=== PATIENT | female | born 1960 | race Caucasian/White ===

== ENCOUNTER 2017-05-30 22:44 | Emergency (ER) | payer OTHER ==
[~2017-05-30] VITALS: Ht 160 cm; Wt 76.2 kg
[~2017-05-30 22:44] MED LIST: CARI350T PO; OXYC1TAB PO
[2017-05-30 22:49] VITALS: BP 134/65
--- NOTE | 2017-05-30 22:53 | NUR ---
PT W/C ASSISTED TO BED 4.
--- NOTE | 2017-05-30 23:00 | NUR ---
56Y/F PT. PRESENTS TO ED WITH C/O PAIN LOWER BACK RADIATES TO RIGHT LEG X 1 WEEK. HX. CHRONIC BACK PAIN, ON PAIN MANAGEMENT. RUN OUT OF PAIN MEDICAINE. APPOINTMENT WITH PMD NEXT WEEK. AAO X4, AMBULATORY WITH W/C ASSIST. C/O PAIN 03/26. VSS, ER MADE AWARE OF PT. STAUDaily.
--- NOTE | 2017-05-30 23:00 | NUR ---
Patient being evaluated by DR. ALMAZAN at bedside.
[2017-05-30] MEDS ORDERED: predniSONE 20 MG TAB PO ONE (23:20)
[2017-05-30] MEDS ORDERED: KETOROLAC 60 MG/2 ML VIAL IM ONE (23:20)
[2017-05-30] MEDS ORDERED: CYCLOBENZAPRINE 10 MG TAB PO ONE (23:20)
[2017-05-31 00:21] VITALS: BP 140/81
--- NOTE | 2017-05-31 00:21 | NUR ---
Patient discharged with v/s stable. Written and verbal after care instructions given and explained. Patient alert, oriented and verbalized understanding of instructions. Ambulatory with steady gait. All questions addressed prior to discharge. ID band removed. Patient advised to follow up with PMD. Rx of FLEXERIL 5 MG TAB & PREDNISONE 20 MG TAB given. Patient educated on indication of medication including possible reaction and side effects. Opportunity to ask questions provided and answered.
== END 2017-05-31 00:21 | disposition home or self-care (01) ==
LOC: MED 22:44
DX: M54.40 Lumbago with sciatica, unspecified side (principal); I10 Essential (primary) hypertension; Z79.899 Other long term (current) drug therapy
CPT/HCPCS: 96372; 99283; J1885; J7512

== ENCOUNTER 2017-08-20 19:14 | Emergency (ER) | payer OTHER ==
[~2017-08-20] VITALS: Ht 162.6 cm; Wt 78.9 kg
[2017-08-20 19:22] VITALS: BP 140/83
--- NOTE | 2017-08-20 20:13 | NUR ---
AMBULATED TO ER BED 11
[2017-08-20] MEDS ORDERED: fentaNYL 0.05 MG/ML VIAL IM ONE (20:35)
[2017-08-20] MEDS ORDERED: KETOROLAC 30 MG/ML VIAL IM ONE (20:35)
--- NOTE | 2017-08-20 21:00 | NUR ---
PATIENT PRESENTS TO ED WITH PAIN TO LOWER BACK . PT STATES SHE WAS CLEANING UP FOR SARAH AND HER SCIATICA PAIN GOT WORSE . DENIES N/V/D; SKIN IS PINK/WARM/DRY; AAOX4 WITH EVEN AND STEADY GAIT; LUNGS CLEAR BL; HR EVEN AND REGULAR; PT DENIES ANY FEVER, CP, SOB, OR COUGH AT THIS TIME; PATIENT STATES PAIN OF 7/10 AT THIS TIME; VSS; PATIENT POSITIONED FOR COMFORT; HOB ELEVATED; BEDRAILS UP X2; BED DOWN. ER MD MADE AWARE OF PT STATUS.
[2017-08-20 21:25] VITALS: BP 129/71
--- NOTE | 2017-08-20 21:25 | NUR ---
Patient discharged with v/s stable. Written and verbal after care instructions given and explained. Patient alert, oriented and verbalized understanding of instructions. Ambulatory with steady gait. All questions addressed prior to discharge. ID band removed. Patient advised to follow up with PMD. Rx of NAPROSYN, PERCOCET given. Patient educated on indication of medication including possible reaction and side effects. Opportunity to ask questions provided and answered. PT STATES SHE HAS A RIDE HOME.
== END 2017-08-20 21:25 | disposition home or self-care (01) ==
LOC: MED 19:14
DX: M54.42 Lumbago with sciatica, left side (principal); I10 Essential (primary) hypertension; Z79.899 Other long term (current) drug therapy
CPT/HCPCS: 81025; 96372; 99284; J1885; J3010

== ENCOUNTER 2019-02-05 13:20 | Emergency (ER) | payer OTHER ==
[~2019-02-05] VITALS: Ht 162.6 cm; Wt 72.6 kg
[2019-02-05 13:27] VITALS: BP 140/89
--- NOTE | 2019-02-05 13:27 | NUR ---
PATIENT AMBULATED TO BED 1
--- NOTE | 2019-02-05 13:35 | NUR ---
PT PRESENTED TO THE ED WITH THE CHIEF C/O COUGH AND RUNNY NOSE FOR 2 DAYS. COUGH WITH PHLEGM, NO BLOOD. TOOK MOTRIN THIS MORNING AT 0800 W/O RELIEF. NAUSEATED AT THIS TIME. NO VOMITING OR DIARRHEA. DENIES RECENT FEVER. LUNGS CLEAR ON AUSCULTATION. ABDOMEN SOFT ROUND AND NON-TENDER. ACTIVE BOWEL SOUND. VSS.
[2019-02-05] MEDS ORDERED: ALBUTEROL SULFATE/IPRATROPIU 3 ML SOL IH ONE (14:15)
[2019-02-05] MEDS ORDERED: DEXAMETHASONE 10 MG/ML VIAL IM ONE (14:15)
[2019-02-05] MEDS ORDERED: hydrOXYzine HCL 25 MG TAB PO ONE (14:15)
[2019-02-05] MEDS ORDERED: cefTRIAXone 1,000 MG in LIDOCAINE 1% ***ER ONLY *** 2.1 ML IM ONE (14:15)
[2019-02-05] MEDS ORDERED: cefTRIAXone 1,000 MG VIAL ONE (14:30)
[2019-02-05] MEDS ORDERED: LIDOCAINE MPF 1% 5mL VIAL ONE (14:31)
--- NOTE | 2019-02-05 14:50 | NUR ---
Note [email or web address] in EDM - 02/05/19 at 1522 by MEDMAYNORV Patient discharged with v/s stable. Written and verbal after care instructions given and explained. Patient alert, oriented and verbalized understanding of instructions. Ambulatory with steady gait. All questions addressed prior to discharge. ID band removed. Patient advised to follow up with PMD. Rx of FIORICET [id number], PROMETHAZINE DM 6/25MG-15MG/5ML AND LEVAQUIN 500MG given. Patient educated on indication of medication including possible reaction and side effects. Opportunity to ask questions provided and answered.
[2019-02-05 15:20] VITALS: BP 148/82
--- NOTE | 2019-02-05 15:20 | NUR ---
Patient discharged with v/s stable. Written and verbal after care instructions given and explained. Patient alert, oriented and verbalized understanding of instructions. Ambulatory with steady gait. All questions addressed prior to discharge. ID band removed. Patient advised to follow up with PMD. Rx of FIORICET [id number], PROMETHAZINE DM 6/25MG-15MG/5ML AND LEVAQUIN 500MG given. Patient educated on indication of medication including possible reaction and side effects. Opportunity to ask questions provided and answered.
== END 2019-02-05 15:20 | disposition home or self-care (01) ==
LOC: MED 13:20
DX: J20.9 Acute bronchitis, unspecified (principal); I10 Essential (primary) hypertension; Z79.899 Other long term (current) drug therapy
CPT/HCPCS: 71046; 94640; 96372; 99283; J0696; J1100; J2001; J7620; Q0092

== ENCOUNTER 2019-02-06 07:59 | Emergency (ER) | payer OTHER ==
[~2019-02-06] VITALS: Ht 160 cm; Wt 72.6 kg
[2019-02-06 08:05] VITALS: BP 149/83
--- NOTE | 2019-02-06 08:05 | NUR ---
PT PRESENTS TO ED WITHC/O HEADACHE X 2 DAYS. PT WAS SEEN BY ER MD YESTERDAY WITH DX.BRONCHITIS, TREATED WITH ATB AND ALSO GOT BETALB/APAP/CAFF FOR HEADCHE. PAIN NOTE RELIEVED. DENIES PMH. AAO X4, GCS 15, AMBULATORY WITH STEADY GAIT. PUPILS PERRL 3/3 MM. ABLE TO SPEAK WITH FULL COMPLETE SENTENCES. RESPIATIONS EVEN AND UNLABORED, BL LUNG CLEAR. C/O NON PRODUCTIVE COUGH. SKIN WARM/PINK/DRY, +PMSC. VS, TACHYCARDIA IL 117, BP WNL. STATED HEADACHE 10/10. DR. GUERRERO MADE AWARE OF PT STATUS. WILL CONTINUE TO MONITOR
--- NOTE | 2019-02-06 08:05 | NUR ---
PT AMBULATED TO ED BED 07
--- NOTE | 2019-02-06 08:52 | NUR ---
pt amb to bpr w/o asst
[2019-02-06] MEDS ORDERED: diphenhydrAMINE 50 MG/ML VIAL IM ONE (09:20)
[2019-02-06] MEDS ORDERED: PROCHLORPERAZINE 10 MG/2 ML VIAL IM ONE (09:20)
--- NOTE | 2019-02-06 10:31 | NUR ---
Patient discharged with v/s stable. Written and verbal after care instructions given and explained. Patient alert, oriented and verbalized understanding of instructions. Ambulatory with steady gait. All questions addressed prior to discharge. ID band removed. Patient advised to follow up with PMD. Rx of COMPAZINE 10 MG, BENADRYL 25 MG given. Patient educated on indication of medication including possible reaction and side effects. Opportunity to ask questions provided and answered.
[2019-02-06 10:32] VITALS: BP 125/80
== END 2019-02-06 10:31 | disposition home or self-care (01) ==
LOC: MED 07:59
DX: R51 Headache (principal); R05 Cough; R11.0 Nausea; I10 Essential (primary) hypertension; F17.200 Nicotine dependence, unspecified, uncomplicated; Z79.899 Other long term (current) drug therapy
CPT/HCPCS: 81025; 96372; 99283; J0780; J1200

== ENCOUNTER 2019-02-25 11:33 | Emergency (ER) | payer OTHER ==
[~2019-02-25] VITALS: Ht 162.6 cm; Wt 76.7 kg
[2019-02-25 11:41] VITALS: BP 153/79
--- NOTE | 2019-02-25 11:48 | NUR ---
PATIENT AMBULATED TO BED 12
[2019-02-25] MEDS ORDERED: KETOROLAC 60 MG/2 ML VIAL IM ONE (12:35)
--- NOTE | 2019-02-25 13:20 | NUR ---
MEDICATED PER ERMDS ORDER , TOLERATED WELL.
[2019-02-25 14:05] VITALS: BP 151/85
--- NOTE | 2019-02-25 14:07 | NUR ---
Patient discharged with v/s stable. Written and verbal after care instructions given and explained. Patient alert, oriented and verbalized understanding of instructions. Ambulatory with steady gait. All questions addressed prior to discharge. ID band removed. Patient advised to follow up with PMD. Rx of NAPROSYN AND FIORICET given. Patient educated on indication of medication including possible reaction and side effects. Opportunity to ask questions provided and answered.
--- NOTE | 2019-02-25 14:09 | NUR ---
Chart checked and completed. The patient's care was reviewed and supervised by Blanche Waller RN.
== END 2019-02-25 14:07 | disposition home or self-care (01) ==
LOC: MED 11:33
DX: M54.5 Low back pain (principal); G89.29 Other chronic pain; G43.909 Migraine, unspecified, not intractable, without status migrainosus; F17.210 Nicotine dependence, cigarettes, uncomplicated; I10 Essential (primary) hypertension; Z87.39 Personal history of other diseases of the musculoskeletal system and connective tissue; Z79.899 Other long term (current) drug therapy
CPT/HCPCS: 96372; 99283; J1885

== ENCOUNTER 2019-04-04 14:09 | Emergency (ER) | payer OTHER ==
[~2019-04-04] VITALS: Ht 162.6 cm; Wt 82.1 kg
[2019-04-04 14:31] VITALS: BP 132/81
--- NOTE | 2019-04-04 15:31 | NUR ---
Patient ambulated to bed 10
--- NOTE | 2019-04-04 15:48 | NUR ---
Note undone in EDM - 04/04/19 at 1752 by [email or web address] 58/F BIB SELF C/O R HIP PAIN RADIATING TO RIGHT LEG X 4 DAYS . PT REPORTS GETTING APPROVAL TO BE SEEN BY A PAIN MANAGMENT DR BUT SHE DOESN'T HAVE THE APPT YET AND IS IN TOO MUCH PAIN TO WAIT UNTIL THEN. DENIES INJURY. PT STATES SHE HAS A DISC DISEASE AND DEGENERATIVE BONE DISEASE THAT CAUSES HER ALOT OF PAIN ALL THE TIME. 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 AAOX4 AMB WITH CANE; PATIENT STATES PAIN OF 10/10 AT THIS TIME. PATIENT POSITIONED FOR COMFORT; HOB ELEVATED; BEDRAILS UP X1; BED DOWN. ER MD MADE AWARE OF PT STATUS.
--- NOTE | 2019-04-04 17:45 | NUR ---
PATIENT MOVED TO BED 5 VIA W/C
--- NOTE | 2019-04-04 17:51 | NUR ---
PT BIB VIA W/C TO ED BED 05 FOR EVALUATION OF RT HIP PIAN. PT STATED HAVING CHRONIC HIP PAIN. PMD REFERRED TO PAIN MANAGEMENT NEXT 2 WKS. PT AAO X4, GCS 15, RESPIATIONS EVEN AND UNLABORED. RT HIP PAIN RADIATES TO RT LEG. VSS, NO ACUTE DSITRESS AT THIS TIME. ED PROVIDER MADE AWARE OF PT STATUS. WILL CONTINUE TO MONITOR
--- NOTE | 2019-04-04 17:53 | NUR ---
Dr. Hughes evaluating patient at bedside.
[2019-04-04] MEDS ORDERED: MORPHINE SULFATE 4 MG/ML SYR IM ONE (18:00)
[2019-04-04 18:30] VITALS: BP 135/82
--- NOTE | 2019-04-04 18:45 | NUR ---
Patient discharged with v/s stable. Written and verbal after care instructions given and explained. Patient alert, oriented and verbalized understanding of instructions. Ambulatory with steady gait. All questions addressed prior to discharge. ID band removed. Patient advised to follow up with PMD. Opportunity to ask questions provided and answered.
== END 2019-04-04 18:45 | disposition home or self-care (01) ==
LOC: MED 14:09
DX: M54.9 Dorsalgia, unspecified (principal); G89.29 Other chronic pain; M25.559 Pain in unspecified hip; I10 Essential (primary) hypertension; Z79.899 Other long term (current) drug therapy
CPT/HCPCS: 96372; 99283; J2270

== ENCOUNTER 2019-10-25 14:08 | Emergency (ER) | payer SELFPAY ==
[~2019-10-25] VITALS: Ht 162.6 cm; Wt 74.8 kg
[2019-10-25 14:12] VITALS: BP 119/82
--- NOTE | 2019-10-25 14:17 | NUR ---
TO LOBBY, VSS. AWAITING BED IN ED.
--- NOTE | 2019-10-25 14:31 | NUR ---
PT AMBULATED TO ER BED 05
[2019-10-25] MEDS ORDERED: KETOROLAC 60 MG/2 ML VIAL IM ONE (14:55)
--- NOTE | 2019-10-25 15:01 | NUR ---
59 YR OLD AAO X4 PT BIB C/O CHRONIC LOWER BACK PAIN RADIATING TO L LEG X 5 DAYS. DENIES DYSURIA. MED HX: HTN, R HIP REPLACEMENT 2014
[2019-10-25 16:31] VITALS: BP 111/67
--- NOTE | 2019-10-25 16:33 | NUR ---
Patient discharged with v/s stable. Written and verbal after care instructions given and explained. Patient alert, oriented and verbalized understanding of instructions. Ambulatory with steady gait. All questions addressed prior to discharge. ID band removed. Patient advised to follow up with PMD. Rx of [place],medrol,Ibu given. Patient educated on indication of medication including possible reaction and side effects. Opportunity to ask questions provided and answered.
== END 2019-10-25 16:33 | disposition home or self-care (01) ==
LOC: MED 14:08
DX: G89.29 Other chronic pain (principal); M54.9 Dorsalgia, unspecified; R31.9 Hematuria, unspecified; I10 Essential (primary) hypertension; Z79.899 Other long term (current) drug therapy
CPT/HCPCS: 81002; 96372; 99283; J1885

== ENCOUNTER 2020-02-11 10:48 | Emergency (ER) | payer MEDICAID, OTHER ==
[~2020-02-11] VITALS: Ht 156.2 cm; Wt 67.8 kg
[2020-02-11 10:49] VITALS: BP 144/117
[2020-02-11] MEDS ORDERED: KETOROLAC 30 MG/ML VIAL IM ONE (11:35)
[2020-02-11 12:58] VITALS: BP 138/94
== END 2020-02-11 12:59 | disposition home or self-care (01) ==
LOC: MED 10:48
DX: S16.1XXA Strain of muscle, fascia and tendon at neck level, initial encounter (principal); I10 Essential (primary) hypertension; M50.30 Other cervical disc degeneration, unspecified cervical region; W17.89XA Other fall from one level to another, initial encounter; Y93.89 Activity, other specified; Y92.89 Other specified places as the place of occurrence of the external cause; Y99.8 Other external cause status; Z79.899 Other long term (current) drug therapy; M54.30 Sciatica, unspecified side
CPT/HCPCS: 72040; 72125; 96372; 99284; J1885

== ENCOUNTER 2021-07-02 08:05 | Emergency (ER) | payer OTHER ==
[~2021-07-02] VITALS: Ht 160 cm; Wt 72.6 kg
[2021-07-02 08:16] VITALS: BP 128/84
[2021-07-02] MEDS ORDERED: KETOROLAC 60 MG/2 ML VIAL IM ONE (08:25)
--- NOTE | 2021-07-02 08:35 | NUR ---
IM MEDS GIVEN-NADR AT THIS TIME
--- NOTE | 2021-07-02 08:37 | NUR ---
60 Y/O FEMALE C/O RIGHT BUTTOCK & LEFT FOOT PAIN 03/26 DESCRIBES ACHING X1DAY. NOTED REDNESS & SWELLING S/P FALL X LAST NIGHT. DENIES HEAD INJURY, DENIES LOC. DENIES FEVER/CHILLS. DENIES N/V. PMH: HTN, CHRONIC PAIN NKA
--- NOTE | 2021-07-02 09:01 | NUR ---
PT TAKEN TO XR VIA DAE.
--- NOTE | 2021-07-02 09:16 | NUR ---
PT TAKEN TO ER BED 8 VIA DAE.
[2021-07-02] MEDS ORDERED: ACET-8386 PO (09:36)
[2021-07-02] MEDS ORDERED: IBUP-2213 PO (09:36)
--- NOTE | 2021-07-02 09:40 | NUR ---
per ermd pt right foot was place in a ortho shoe nad pmsc was assesed before and after all wnl.
[2021-07-02 09:52] VITALS: BP 118/76
--- NOTE | 2021-07-02 09:53 | NUR ---
Patient discharged with v/s stable. Written and verbal after care instructions given and explained. Patient alert, oriented and verbalized understanding of instructions. Ambulatory with steady gait. All questions addressed prior to discharge. ID band removed. Patient advised to follow up with PMD. Rx of NORCO AND IBUPROFEN given. Patient educated on indication of medication including possible reaction and side effects. Opportunity to ask questions provided and answered.
== END 2021-07-02 09:52 | disposition home or self-care (01) ==
LOC: MED 08:05
DX: S92.515A Nondisplaced fracture of proximal phalanx of left lesser toe(s), initial encounter for closed fracture (principal); M53.3 Sacrococcygeal disorders, not elsewhere classified; I10 Essential (primary) hypertension; F17.200 Nicotine dependence, unspecified, uncomplicated; Z79.899 Other long term (current) drug therapy; Z98.890 Other specified postprocedural states; W19.XXXA Unspecified fall, initial encounter; Y93.89 Activity, other specified; Y92.89 Other specified places as the place of occurrence of the external cause; Y99.8 Other external cause status
CPT/HCPCS: 72220; 73630; 96372; 99284; J1885

== ENCOUNTER 2021-07-09 10:03 | Emergency (ER) | payer OTHER ==
[~2021-07-09] VITALS: Ht 160 cm; Wt 60.3 kg
[~2021-07-09 10:03] MED LIST changes: +ACET-8386 PO; +IBUP-2213 PO
[2021-07-09 10:10] VITALS: BP 154/83
--- NOTE | 2021-07-09 10:14 | NUR ---
PT SENT TO LOBBY
[2021-07-09] MEDS ORDERED: HYDROcodone/APAP 5/325 MG 1 TAB TAB PO ONE (12:05)
[2021-07-09] MEDS ORDERED: IBUPROFEN 400 MG TAB PO ONE (12:05)
[2021-07-09] MEDS ORDERED: IBUP-1842 PO (12:40)
[2021-07-09] MEDS ORDERED: ACET-8386 PO (12:40)
--- NOTE | 2021-07-09 12:50 | NUR ---
60/F BIB SELF WITH C/O LEFT TOE PAIN. PATIENT STATES SHE WAS SEEN HERE S/P SUFFERING A FALL AND WAS TOLD SHE "BROKE MULTIPLE TOES." STATES SHE FEELS PAIN HAS BEEN WORSENING. DENIES ANY NEW INJURY OR TRAUMA. MEDHX: HTN ALLERGIES: DENIES
--- NOTE | 2021-07-09 13:39 | NUR ---
Patient discharged with v/s stable. Written and verbal after care instructions given and explained ABOUT TOE FRACTURE. Patient alert, oriented and verbalized understanding of instructions. Ambulatory with steady gait. All questions addressed prior to discharge. ID band removed. Patient advised to follow up with PMD. Rx of MOTRIN AND NORCO 5-325 given. Patient educated on indication of medication including possible reaction and side effects. EDUCATED TO NOT DRINK OR DRIVE WHILE USING NARCOTICS Opportunity to ask questions provided and answered.
== END 2021-07-09 13:39 | disposition home or self-care (01) ==
LOC: MED 10:03
DX: S92.512A Displaced fracture of proximal phalanx of left lesser toe(s), initial encounter for closed fracture (principal); I10 Essential (primary) hypertension; Z79.891 Long term (current) use of opiate analgesic; Z79.1 Long term (current) use of non-steroidal anti-inflammatories (NSAID); Z79.899 Other long term (current) drug therapy; W01.0XXA Fall on same level from slipping, tripping and stumbling without subsequent striking against object, initial encounter; Y92.89 Other specified places as the place of occurrence of the external cause; Y93.89 Activity, other specified; Y99.8 Other external cause status
CPT/HCPCS: 29515; 99283

== ENCOUNTER 2021-07-24 07:30 | Emergency (ER) | payer OTHER ==
[~2021-07-24] VITALS: Ht 160 cm; Wt 69.4 kg
[~2021-07-24 07:30] MED LIST changes: +IBUP-1842 PO
[2021-07-24 07:33] VITALS: BP 158/73
[2021-07-24] MEDS ORDERED: ACET-9527 PO (08:00)
[2021-07-24 08:15] VITALS: BP 158/73
== END 2021-07-24 08:15 | disposition home or self-care (01) ==
LOC: MED 07:30
DX: S92.512A Displaced fracture of proximal phalanx of left lesser toe(s), initial encounter for closed fracture (principal); S92.515A Nondisplaced fracture of proximal phalanx of left lesser toe(s), initial encounter for closed fracture; I10 Essential (primary) hypertension; Z79.899 Other long term (current) drug therapy; W19.XXXA Unspecified fall, initial encounter; Y93.89 Activity, other specified; Y92.89 Other specified places as the place of occurrence of the external cause; Y99.8 Other external cause status
CPT/HCPCS: 99283

== ENCOUNTER 2021-07-31 06:20 | Emergency (ER) | payer OTHER ==
[~2021-07-31] VITALS: Ht 160 cm; Wt 68.0 kg
[~2021-07-31 06:20] MED LIST changes: +ACET-9527 PO
[2021-07-31 06:21] VITALS: BP 124/68
--- NOTE | 2021-07-31 06:27 | NUR ---
PT TAKEN TO BED 12
--- NOTE | 2021-07-31 06:30 | NUR ---
LEFT FOOT PAIN. HAS APPOINTMENT WITH VALVE MACHINE OPERATOR NEXT WEEK.PT STATES I'VE BEEN COMING HERE FOR TREATMENTS UNTIL THEN. FOOT PAIN AFTER SLIP AND FALL ON 07/09/21. PT STATES PAIN IS 5/10. MEDICAL HX:HTN MEDICATIONS:LISINPRIL NKA
--- NOTE | 2021-07-31 06:32 | NUR ---
Dr. Jolly examining patient.
[2021-07-31] MEDS ORDERED: HYDROcodone/APAP 5/325 MG 1 TAB TAB PO ONE (06:35)
[2021-07-31] MEDS ORDERED: ACET-8386 PO (06:41)
[2021-07-31 07:05] VITALS: BP 124/68
--- NOTE | 2021-07-31 07:05 | NUR ---
Patient discharged with v/s stable. Written and verbal after care instructions given and explained. Patient alert, oriented and verbalized understanding of instructions. Ambulatory with steady gait. All questions addressed prior to discharge. ID band removed. Patient advised to follow up with PMD. Rx of HYDROCODONE/ACETAMINOPHEN given. Patient educated on indication of medication including possible reaction and side effects. Opportunity to ask questions provided and answered.
--- NOTE | 2021-07-31 18:56 | NUR ---
Chart checked and completed. The patient's care was reviewed and supervised by DAISY CUNNINGHAM, RN, RN.
== END 2021-07-31 07:05 | disposition home or self-care (01) ==
LOC: MED 06:20
DX: M79.672 Pain in left foot (principal); I10 Essential (primary) hypertension; Z79.899 Other long term (current) drug therapy
CPT/HCPCS: 29515; 99283

== ENCOUNTER 2022-06-11 16:01 | Emergency (ER) | payer OTHER ==
[~2022-06-11] VITALS: Ht 160 cm; Wt 60.3 kg
[~2022-06-11 16:01] MED LIST changes: -ACET-9527 PO; -OXYC1TAB PO
[2022-06-11 16:26] VITALS: BP 114/78
[2022-06-11 18:11] LABS: BASOPHILS # (AUTO) 0.1 K/uL (0.00-0.22); BASOPHILS % (AUTO) 0.7 % (0.0-2.0); EOSINOPHILS % (AUTO) 0.2 % (0.0-4.0); HEMATOCRIT 39.2 % (36-48); HEMOGLOBIN 12.7 g/dL (12.0-16.0); LYMPHOCYTES # (AUTO) 0.3 K/uL (2.5-16.5); LYMPHOCYTES % (AUTO) 4.4 % (20.5-51.1); MEAN CORPUSCULAR HEMOGLOBIN 29 pg (27-31); MEAN CORPUSCULAR HGB CONC 32 g/dL (33-37); MEAN CORPUSCULAR VOLUME 90.3 fL (80-94); MONOCYTES # (AUTO) 0.5 K/uL (0.8-1.0); MONOCYTES % (AUTO) 6.3 % (1.7-9.3); NEUTROPHILS # (AUTO) 6.7 K/uL (1.8-7.7); NEUTROPHILS % (AUTO) 88.4 % (42.2-75.2); PLATELET COUNT (AUTO) 212 K/uL (140-450); RED BLOOD CELL COUNT(AUTO) 4.35 MIL/uL (4.20-5.40); RED CELL DISTRIBUTION WIDTH 13.5 % (11.6-13.7); WHITE BLOOD COUNT (AUTO) 7.6 K/uL (4.8-10.8)
[2022-06-11 18:36] LABS: ANION GAP 14.5 (8-16); CARBON DIOXIDE 25.3 mmol/L (21-32); CHLORIDE 100 mmol/L (98-107); CREATININE 1.1 mg/dL (0.6-1.3); GFR ARICAN-AMERICAN 65 mL/min (>90); GLUCOSE 102 mg/dL (74-106); LIPASE 40 U/L (73-393); POTASSIUM 3.8 mmol/L (3.5-5.1); SODIUM SERUM 136 mmol/L (136-145); TOTAL BILIRUBIN 0.3 mg/dL (0.0-1.0); UREA NITROGEN, BLOOD 24 mg/dL (7-18)
[2022-06-11] MEDS ORDERED: ONDANSETRON 4 MG ODT PO ONE (18:55)
[2022-06-11] MEDS ORDERED: ONDA-188 PO (18:58)
--- NOTE | 2022-06-11 19:32 | NUR ---
CALLED PT IN LOBBY AND OUTSIDE. NO ANSWER. CALLED PT TO NUMBER ON FILE, NO ANSWER.
[2022-06-11 19:33] VITALS: BP 114/78
--- NOTE | 2022-06-11 19:33 | NUR ---
Linsey shelton in ED - 06/11/22 at 1937 by MED PATIENT ELOPED FROM FACILITY. DISCHARGE INSTRUCTIONS NOT GIVEN TO PATIENT. DR. DOMINGO NOTIFIED.
--- NOTE | 2022-06-11 19:33 | NUR ---
pt left without paperwork
== END 2022-06-11 19:33 | disposition home or self-care (01) ==
LOC: MED 16:01
DX: R11.2 Nausea with vomiting, unspecified (principal); R51.9 Headache, unspecified; R68.83 Chills (without fever); Z79.899 Other long term (current) drug therapy; Z79.891 Long term (current) use of opiate analgesic; Z79.1 Long term (current) use of non-steroidal anti-inflammatories (NSAID)
CPT/HCPCS: 36415; 80053; 81002; 83690; 85025; 99283; Q0162

== ENCOUNTER 2022-11-20 16:08 | Emergency (ER) | payer OTHER ==
[~2022-11-20] VITALS: Ht 160 cm; Wt 63.5 kg
[~2022-11-20 16:08] MED LIST changes: -ACET-8386 PO; +ACET-8905 PO; +ONDA-188 PO
[2022-11-20 16:33] VITALS: BP 130/73
--- NOTE | 2022-11-20 16:45 | NUR ---
62/F WALKED IN C/O LEFT SIDED BODY PAIN S/P FALL LAST NIGHT. PT REPORTS PAIN FROM LEFT SHOULDER ALL THE WAY DOWN TO LEFT BUTTOCK. DENIES LOC OR TRAUMA TO HEAD. REPORTS TAKING MOTRIN LAST NIGHT WITH MILD RELIEF. PMH: HTN
[2022-11-20] MEDS ORDERED: KETOROLAC 30 MG/ML VIAL IM ONE (17:10)
[2022-11-20] MEDS ORDERED: NAPR-1704 PO (19:43)
[2022-11-20 20:01] VITALS: BP 130/73
--- NOTE | 2022-11-20 20:01 | NUR ---
PT LEFT WITHOUT PAPER WORK
== END 2022-11-20 20:01 | disposition home or self-care (01) ==
LOC: MED 16:08
DX: S40.012A Contusion of left shoulder, initial encounter (principal); S20.212A Contusion of left front wall of thorax, initial encounter; S30.0XXA Contusion of lower back and pelvis, initial encounter; I10 Essential (primary) hypertension; M06.9 Rheumatoid arthritis, unspecified; Z79.899 Other long term (current) drug therapy; Z79.1 Long term (current) use of non-steroidal anti-inflammatories (NSAID); Z79.891 Long term (current) use of opiate analgesic; W01.0XXA Fall on same level from slipping, tripping and stumbling without subsequent striking against object, initial encounter; Y92.89 Other specified places as the place of occurrence of the external cause; Y93.89 Activity, other specified; Y99.8 Other external cause status
CPT/HCPCS: 71101; 72220; 73030; 96372; 99284; J1885

== ENCOUNTER 2023-11-02 09:44 | Emergency (ER) | payer OTHER ==
[~2023-11-02] VITALS: Ht 160 cm; Wt 61.7 kg
[~2023-11-02 09:44] MED LIST changes: +NAPR-1704 PO
[2023-11-02 10:06] VITALS: BP 142/53; PULSE 83; RESP 20; TEMP 98; O2SAT 99
[2023-11-02 10:30] VITALS: O2SAT 99
[2023-11-02 10:33] VITALS: TEMP 98
[2023-11-02] MEDS: LIDOCAINE 5% 1 EA PATCH TP ONE (11:19)
[2023-11-02] MEDS: KETOROLAC 30 MG/ML VIAL IM ONE (11:20)
[2023-11-02 11:50] LABS: BASOPHILS # (AUTO) 0.1 K/uL (0.00-0.22); BASOPHILS % (AUTO) 0.9 % (0.0-2.0); EOSINOPHILS # (AUTO) 0.1 K/uL (0-0.4); EOSINOPHILS % (AUTO) 1.9 % (0.0-4.0); HEMATOCRIT 34.3 % (36-48); HEMOGLOBIN 11.3 g/dL (12.0-16.0); LYMPHOCYTES # (AUTO) 1.2 K/uL (2.5-16.5); LYMPHOCYTES % (AUTO) 18.9 % (20.5-51.1); MEAN CORPUSCULAR HEMOGLOBIN 28 pg (27-31); MEAN CORPUSCULAR HGB CONC 33 g/dL (33-37); MEAN CORPUSCULAR VOLUME 85.5 fL (80-94); MONOCYTES # (AUTO) 0.4 K/uL (0.8-1.0); MONOCYTES % (AUTO) 5.8 % (1.7-9.3); NEUTROPHILS # (AUTO) 4.6 K/uL (1.8-7.7); NEUTROPHILS % (AUTO) 72.5 % (42.2-75.2); PLATELET COUNT (AUTO) 513 K/uL (140-450); RED BLOOD CELL COUNT(AUTO) 4.01 MIL/uL (4.20-5.40); RED CELL DISTRIBUTION WIDTH 14.6 % (11.6-13.7); WHITE BLOOD COUNT (AUTO) 6.4 K/uL (4.8-10.8)
[2023-11-02 12:19] LABS: ANION GAP 10.9 (8-16); CALCIUM 8.7 mg/dL (8.5-10.1); CARBON DIOXIDE 30.3 mmol/L (21-32); CREATININE 0.7 mg/dL (0.6-1.3); POTASSIUM 4.2 mmol/L (3.5-5.1)
[2023-11-02 12:22] LABS: ALANINE AMINOTRANSFERASE 19 U/L (12-78); ALBUMIN 3.2 g/dL (3.4-5.0); ALKALINE PHOSPHATASE 148 U/L (50-136); ASPARTATE AMINOTRANSFERASE 19 U/L (15-37); BILIRUBIN,DIRECT 0.1 mg/dL (0.0-0.3); TOTAL BILIRUBIN 0.2 mg/dL (0.0-1.0); TOTAL PROTEIN, SERUM 7.9 g/dL (6.4-8.2)
[2023-11-02 12:48] VITALS: O2SAT 99
[2023-11-02 12:58] VITALS: BP 145/68; PULSE 81; RESP 17; O2SAT 99
[2023-11-02] MEDS ORDERED: METH-1681 PO (13:21)
[2023-11-02] MEDS ORDERED: IBUP-2213 PO (13:21)
[2023-11-02] MEDS ORDERED: LID5T TP (13:21)
== END 2023-11-02 13:27 | disposition home or self-care (01) ==
LOC: MED 09:44
DX: R07.89 Other chest pain (principal); I10 Essential (primary) hypertension; F17.200 Nicotine dependence, unspecified, uncomplicated; Z79.899 Other long term (current) drug therapy; Z71.6 Tobacco abuse counseling
CPT/HCPCS: 36415; 71101; 80048; 80076; 84484; 85025; 93005; 96372; 99285; J1885

== ENCOUNTER 2023-11-10 12:40 | Emergency (ER) | payer OTHER ==
[~2023-11-10] VITALS: Ht 157.5 cm; Wt 60.8 kg
[~2023-11-10 12:40] MED LIST changes: +LID5T TP; +METH-1681 PO
[2023-11-10 13:16] VITALS: BP 126/61; PULSE 97; RESP 20; TEMP 97.8; O2SAT 98
[2023-11-10] MEDS ORDERED: DICL100G32 TP (16:16)
[2023-11-10] MEDS: KETOROLAC 30 MG/ML VIAL IM ONE (16:31)
[2023-11-12] MEDS ORDERED: DICL100G32 TP (12:27)
[2023-11-12] MEDS ORDERED: NAPR-1704 PO (12:27)
[2023-11-12] MEDS ORDERED: IBUP-2213 PO (12:27)
[2023-11-12] MEDS ORDERED: LID5T TP (12:27)
[2023-11-12] MEDS ORDERED: METH-1681 PO (12:27)
== END 2023-11-10 16:50 | disposition home or self-care (01) ==
LOC: MED 12:40
DX: S20.211A Contusion of right front wall of thorax, initial encounter (principal); I10 Essential (primary) hypertension; Z79.899 Other long term (current) drug therapy; X58.XXXA Exposure to other specified factors, initial encounter; Y93.89 Activity, other specified; Y92.89 Other specified places as the place of occurrence of the external cause; Y99.8 Other external cause status
CPT/HCPCS: 71250; 96372; 99285; J1885